=== PATIENT | male | born 1975 | race Caucasian/White ===

== ENCOUNTER 2016-12-23 14:37 | Inpatient (IN) ==
[2016-12-23] MEDS ORDERED: Vancomycin 1,000 MG VIAL IVPB ONE ×2 (16:51→18:00)
[2016-12-23] MEDS ORDERED: *HR* Morphine 2 MG/ML SYRINGE IVP ONE (16:51)
[2016-12-23] MEDS ORDERED: 0.9 % Sodium Chloride 1,000 ML IVC ONE (16:51)
[2016-12-23] MEDS ORDERED: Piperacillin/Tazobactam 3.375 GM in D5% in Water (Mini-Bag+) 100 ML IVPB ONE (16:51)
--- NOTE | 2016-12-23 16:59 | Emergency Department Note ---
START Narrative - START START: Patient was brought to the [facility] area. Upon examination it was determined he will need further evaluation and treatment and will be transferred to a medical bed. Dr. Villanueva did come to [facility] and also evaluated patient. Patient states he has a history of DM. STates a few months ago noticed a small "pimple" in and around the top of penis but it never progressed. Within the last few days he states the area has become more swollen, tender. He states this morning the top shaft of penis was red, but now there is a blackened area in that same place. Scrotum is tender and edematous. Patient denies any nausea or vomiting, no fever. STates he last ate today around 1130. States he has been able to eat and drink without difficulty. Patient advised we will need to consult with a surgeon and he will need CT of pelvis. Patient denies trying to drain the site himself, and states he has not noticed any drainage. Patient was moved to Bed 3, and Dr. Villanueva and Dr. Sheets will assume his care.
--- NOTE | 2016-12-23 17:14 | Emergency Department Note ---
Disposition Clinical Impression: Skin abscess Qualifiers: Site of cutaneous abscess: other site Qualified Code(s): L02.818 - Cutaneous abscess of other sites Disposition: Admitted As Inpatient Condition: Fair Skin/Abscess/FB HPI Chief complaint: ED Skin/Abscess/Foreign Body Stated complaint: Abcess on [place] Time Seen by Provider: 12/23/16 16:29 Source: patient Limitations: no limitations Nursing Notes Reviewed: Yes Vital Signs Reviewed: Yes HPI Narrative: Mr. Sams, a 41yo male, presents from home by POV with chief complaint of swelling on his penis. Patient states he went camping several months ago and had a common "spot"on the left side of the bases penis. He says this resolved after few days. However, over the last 2-3 days, patient notes he has had swelling with central black area at the top of the base of his penis. States it is exquisitely painful to palpation and movement. Denies fever, chills, nausea, vomiting, other pains, difficulty with urination, loss of sensation in the glans of his penis. Patient notes he is supposted to partying with his brother pete as his brother is going into rehab tomorrow. Also, patient has a court date tomorrow. Home Medications Medication Instructions Recorded Confirmed No Known Home Drugs 12/23/16 12/23/16 Allergies Allergy/AdvReac Type Severity Reaction Status Date / Time tramadol Allergy Hives Verified 03/13/16 14:48 NSAIDS (Non-Steroidal AdvReac Gastrointestinal Verified 03/13/16 14:48 Anti-Inflamma Upset All systems ED: reviewed and negative except as stated. Constitutional: Denies: fever, chills Cardiovascular: Denies: chest pain, palpitations Respiratory: Denies: cough, dyspnea, wheezes, hemoptysis Gastrointestinal: Denies: abdominal pain, nausea, vomiting, diarrhea, constipation Genitourinary: Reports: genital lesions. Denies: urgency, dysuria, hematuria, discharge Musculoskeletal: Denies: back pain Past Medical History - Past Medical History Medical history: Reports: hepatitis Surgical history: Reports: other Psychiatric history: Reports: anxiety, depression, other - Social History Smoking Status: Current every day smoker Smokeless Tobacco Status: No Alcohol use: Reports: none Drug use: Reports: none, marijuana, methamphetamine Physical Exam Vital signs reviewed. General: Patient is alert, oriented, and in no acute distress. HEENT: No facial asymmetry. Head is normocephalic and atraumatic. Cardiovascular: Heart regular rate and rhythm without clicks, rubs, gallops, or murmurs. Respiratory: Symmetric chest rise with good respiratory effort. Bilateral breath sounds are clear without wheezing, crackles, or rhonchi. Abdomen: Bowel sounds present normoactive x-4 quadrants. Abdomen is soft, nondistended, and nontender. General: Basically patient's penis shows a painful raised area of fluctuance approximately 2.5 cm in diameter on an erythematous base. A posterior lens or exudates. No swelling or erythema of the shaft or glans penis. No bilateral inguinal lymphadenopathy. No testicular pain and tenderness. Psych: Patient's affect is appropriate for situation. - General Limitations: no limitations General appearance: alert Course Course Narrative: Spoke with Dr. Reece of urology who advises transfer. This may be an abscess we cannot rule out Suzy's out at this time. Additionally, this infection may progress to Suzy's. At this time, we do not have the surgical schedule to appropriately emergently debride should this be Suzy's. Lab work shows leukocytosis otherwise unremarkable. [facility] is on diversion. CT with IV contrast returned showing abscess without subcutaneous gas or crepitus. Spoke with Dr. Mendoza who agreed to come down to the emergency department for bedside I&D. Patient started on empiric IV vancomycin and Zosyn. Patient accepted to the hospitalist, Dr. Taylor, with Dr. Mendoza following. Vital Signs Temperature 99.8 F H 12/23/16 15:26 Pulse Rate 94 12/23/16 15:26 Respiratory Rate 16 12/23/16 15:26 Blood Pressure 130/89 12/23/16 15:26 O2 Sat by Pulse Oximetry 97 12/23/16 15:26 Temperature 99.8 F H 12/23/16 15:26 Pulse Rate 94 12/23/16 15:26 Respiratory Rate 16 12/23/16 15:26 Blood Pressure 130/89 12/23/16 15:26 O2 Sat by Pulse Oximetry 97 12/23/16 15:26 Oxygen Delivery Oxygen Delivery Room Air Skin/Abscess/Foreign Body - Lab Data Result diagrams: 12/23/16 17:00 12/23/16 17:00 Lab Results 12/23/16 12/23/16 12/23/16 Range/Units 17:00 17:00 17:00 WBC 16.3 H (4.3-11.1) K/mcL RBC 5.52 H (4.19-5.50) M/mcL Hgb 17.1 H (12.9-16.9) g/dL Hct 49.4 (37.5-50.1) % MCV 89.5 (83.0-100.0) fL MCH 31.0 (28.0-33.3) pg MCHC 34.6 (31.6-35.5) g/dL RDW 12.3 (11.5-14.5) % Plt Count 282 (140-400) K/mcL MPV 9.7 (9.4-12.4) fL Immature Gran % 0.4 (0-4) % Seg Neutrophils % 67.3 % Lymphocytes % 22.8 % Monocytes % 8.2 % Eosinophils % 1.0 % Basophils % 0.3 % Neutrophils # 11.0 H (1.6-8.9) K/mcL Lymphocytes # 3.7 (0.6-4.6) K/mcL Monocytes # 1.3 (0.0-1.3) K/mcL Eosinophils # 0.2 (0.0-0.6) K/mcL Basophils # 0.1 (0.0-0.2) K/mcL PT 12.9 H (9.4-12.1) Seconds INR 1.2 APTT 33.0 (26.0-36.0) Seconds Sodium 136 (136-145) mEq/L Potassium 3.7 (3.5-4.5) mEq/L Chloride 101 (98-109) mEq/L Carbon Dioxide 28 (19-29) mEq/L BUN 9 (8-26) mg/dL Creatinine 0.69 L (0.72-1.25) mg/dL Est GFR ( Amer) > 60 (> 60) Est GFR (Non-Af Amer) > 60 (> 60) BUN/Creatinine Ratio 13 (6-26) Glucose 90 (70-99) mg/dL POC Glucose (58-89) Calculated Osmolality 280 (280-300) Calcium 9.2 (8.6-10.8) mg/dL Blood Type Antibody Screen 12/23/16 12/23/16 Range/Units 17:05 17:22 WBC (4.3-11.1) K/mcL RBC (4.19-5.50) M/mcL Hgb (12.9-16.9) g/dL Hct (37.5-50.1) % MCV (83.0-100.0) fL MCH (28.0-33.3) pg MCHC (31.6-35.5) g/dL RDW (11.5-14.5) % Plt Count (140-400) K/mcL MPV (9.4-12.4) fL Immature Gran % (0-4) % Seg Neutrophils % % Lymphocytes % % Monocytes % % Eosinophils % % Basophils % % Neutrophils # (1.6-8.9) K/mcL Lymphocytes # (0.6-4.6) K/mcL Monocytes # (0.0-1.3) K/mcL Eosinophils # (0.0-0.6) K/mcL Basophils # (0.0-0.2) K/mcL PT (9.4-12.1) Seconds INR APTT (26.0-36.0) Seconds Sodium (136-145) mEq/L Potassium (3.5-4.5) mEq/L Chloride (98-109) mEq/L Carbon Dioxide (19-29) mEq/L BUN (8-26) mg/dL Creatinine (0.72-1.25) mg/dL Est GFR ( Amer) (> 60) Est GFR (Non-Af Amer) (> 60) BUN/Creatinine Ratio (6-26) Glucose (70-99) mg/dL POC Glucose 94 H (58-89) Calculated Osmolality (280-300) Calcium (8.6-10.8) mg/dL Blood Type O NEGATIVE Antibody Screen NEGATIVE Attestation Statement - Attestation Attestation: I examined this patient and my medical decision-making was reviewed with the WEB DEVELOPER PROGRAMMER/PA/Advanced Practice Nurse/Resident Physician. I agree with the documented findings, disposition and treatment plan as described except to the extent set forth below. 41 yo male presents with pain and swelling to the base of the penis and the pubic area. symptoms worsening over the past 3 days. started as a small "pimple" and progressively worsened. +nausea without vomiting. +history of DM but denies fever, chills, abdominal pain, diarrhea. No history of penile discharge. No crepitus palpated during exam but there is a 1x1cm area of black area which could represent necrotic tissue. Urology consulted immediately after initial evaluation who recommended that there was no open operating rooms and that transfer for possible suzy's gangrene may be appropriate. [facility] on diversion. [place] unable to provide tranfer in timely manner. While waiting for acceptance to [place], labs and CT returned showing abscess without evidence of gas within the tissues. Dr. Mendoza then evaluated the pt in the ED and performed I&D in the ED. Pt was started on vancomycin and zosyn after initial evaluation and pt was admitted for further observation and treatment.
[2016-12-23 17:26] LABS: Basophils # 0.1 K/mcL (0.0-0.2); Basophils % 0.3 %; Eosinophils # 0.2 K/mcL (0.0-0.6); Hematocrit 49.4 % (37.5-50.1); Hemoglobin 17.1 g/dL (12.9-16.9); Immature Granulocytes % 0.4 % (0-4); Lymphocytes # 3.7 K/mcL (0.6-4.6); Lymphocytes % 22.8 %; Mean Corpuscular HGB Conc 34.6 g/dL (31.6-35.5); Mean Corpuscular Volume 89.5 fL (83.0-100.0); Mean Platelet Volume 9.7 fL (9.4-12.4); Monocytes # 1.3 K/mcL (0.0-1.3); Monocytes % 8.2 %; Platelet Count 282 K/mcL (140-400); Red Blood Count 5.52 M/mcL (4.19-5.50); Red Cell Distribution Width 12.3 % (11.5-14.5); Segmented Neutrophils % 67.3 %
[2016-12-23 17:34] LABS: INR 1.2; Prothrombin Time 12.9 Seconds (9.4-12.1)
[2016-12-23 17:39] LABS: Calcium 9.2 mg/dL (8.6-10.8); Carbon Dioxide 28 mEq/L (19-29); Chloride 101 mEq/L (98-109); Glucose 90 mg/dL (70-99); Potassium 3.7 mEq/L (3.5-4.5); Sodium 136 mEq/L (136-145); eGFR For African Americans > 60 (> 60); eGFR For Non-African Americans > 60 (> 60)
[2016-12-23] MEDS ORDERED: Vancomycin 1,500 MG in D5% in Water 250 ML IVPB ONE (18:10)
[2016-12-23 18:31] LABS: BUN/Creatinine Ratio 13 (6-26); Blood Urea Nitrogen 9 mg/dL (8-26); Osmolality,Calculated 280 (280-300)
[2016-12-23] MEDS ORDERED: Lidocaine -MPF 1% 2 ML VIAL INFILT ONE (19:08)
--- NOTE | 2016-12-23 19:38 | Urology - Consult Note ---
Date of Encounter: 12/23/16 Time of Encounter: 19:36 - Assessment and Plan (1) Penile abscess Current Visit: Yes Status: Acute Assessment and plan: Informed consent was obtained. Patient was prepped and draped in normal sterile fashion. I then instilled 10 mL of 1% lidocaine with epinephrine into the patient's abscess area. Pus was immediately returned just with the polka the needle. I then made a incision over the abscess area. I excised a 1 cm x 1 cm necrotic area on the dorsal aspect of the penis just at the junction with the abdominal skin. Marked amount of pus was returned from the patient's abscess pocket. Cultures were obtained. The wound was then packed. Continue IV antibiotics. Will start twice a day packing tomorrow morning with me changing the packing tomorrow morning. We will continue to follow along. Urology CN:HPI Consult date: 12/23/16 Reason for consult Urology: Other (penile abscess) Requesting physician: Enedina Villanueva History of present illness: Enedina is a 41-year-old male with a history penile and scrotal swelling for the past 2 days. Patient states that it started on the left side of his penis. He came to the emergency department today found to have a penile abscess on CT scan. Patient did have a small necrotic area over top of this abscess. Patient is a former IV drug abuser. He denies any recent IV drug abuse. No fevers. Past Med Surg Social Fam HX - Past Medical History Medical history: hepatitis Psychiatric history: anxiety, depression, other - Past Surgical History Surgical History: other - Social History Smoking Status: Current every day smoker Smokeless Tobacco Status: No Alcohol use: none Drug use: none, marijuana, methamphetamine Medications and Allergies Acetaminophen [Tylenol] 500 - 1,000 mg PO Q4-6H PRN #30 tablet 09/07/15 [Rx] Sulfamethoxazole/Trimeth DS [Bactrim DS] 1 each PO BID #14 tablet 03/13/16 [Rx] cephALEXin [Keflex] 500 mg PO QID #28 capsule 03/13/16 [Rx] Allergies tramadol Allergy (Verified 03/13/16 14:48) Hives NSAIDS (Non-Steroidal Anti-Inflamma Adverse Reaction (Verified 03/13/16 14:48) Gastrointestinal Upset Review of Systems - Constitutional no fever(s) - EENT Nose, mouth and throat: no as per HPI - Cardiovascular no chest pain - Respiratory no cough - Gastrointestinal no abdominal pain - Genitourinary as per HPI Exam Initial Vital Signs Temp Pulse Resp BP Pulse Ox 99.8 F H 94 16 130/89 97 12/23/16 15:26 12/23/16 15:26 12/23/16 15:26 12/23/16 15:26 12/23/16 15:26 - General physical appearance Present: well developed - Respiratory Present: normal respiratory effort - Cardiovascular Cardiovascular exam IM: RRR - Abdomen Abdomen: Present: soft - Genitourinary other (The cranial portion of the penis at the junction with the abdominal skin showed a small necrotic area. There was fluctuance underneath. Scrotum and testicles were uninvolved.) Urology Results - Labs 12/23/16 17:00 12/23/16 17:00 Abnormal lab results WBC 16.3 K/mcL (4.3-11.1) H 12/23/16 17:00 RBC 5.52 M/mcL (4.19-5.50) H 12/23/16 17:00 Hgb 17.1 g/dL (12.9-16.9) H 12/23/16 17:00 Neutrophils # 11.0 K/mcL (1.6-8.9) H 12/23/16 17:00 PT 12.9 Seconds (9.4-12.1) H 12/23/16 17:00 Creatinine 0.69 mg/dL (0.72-1.25) L 12/23/16 17:00 POC Glucose 94 (58-89) H 12/23/16 17:05 Diabetes panel 12/23/16 Range/Units 17:00 Sodium 136 (136-145) mEq/L Potassium 3.7 (3.5-4.5) mEq/L Chloride 101 (98-109) mEq/L Carbon Dioxide 28 (19-29) mEq/L BUN 9 (8-26) mg/dL Creatinine 0.69 L (0.72-1.25) mg/dL Glucose 90 (70-99) mg/dL Calcium 9.2 (8.6-10.8) mg/dL Calcium panel 12/23/16 Range/Units 17:00 Calcium 9.2 (8.6-10.8) mg/dL Pituitary panel 12/23/16 Range/Units 17:00 Sodium 136 (136-145) mEq/L Potassium 3.7 (3.5-4.5) mEq/L Chloride 101 (98-109) mEq/L Carbon Dioxide 28 (19-29) mEq/L BUN 9 (8-26) mg/dL Creatinine 0.69 L (0.72-1.25) mg/dL Glucose 90 (70-99) mg/dL Calcium 9.2 (8.6-10.8) mg/dL Adrenal panel 12/23/16 Range/Units 17:00 Sodium 136 (136-145) mEq/L Potassium 3.7 (3.5-4.5) mEq/L Chloride 101 (98-109) mEq/L Carbon Dioxide 28 (19-29) mEq/L BUN 9 (8-26) mg/dL Creatinine 0.69 L (0.72-1.25) mg/dL Glucose 90 (70-99) mg/dL Calcium 9.2 (8.6-10.8) mg/dL All other labs normal. Consult Discharge Plan - Plan Referrals: NO,PCP [Primary Care Provider] -
[2016-12-23] MEDS ORDERED: Acetaminophen 325 MG TABLET PO PRN (20:01)
[2016-12-23] MEDS ORDERED: Naloxone 0.4 MG/ML INJ IVP PRN (20:01)
--- NOTE | 2016-12-23 20:13 | Internal Med History&Physical ---
Date of Encounter: 12/23/16 Time of Encounter: 20:09 Assessment and Plan (1) Sepsis Current visit: Yes Status: Acute Patient with abscess at base of penis, and surrounding erythema consistent with cellulitis. WBC count of 16.3 and mild tachycardia with HR in the 90s, meeting sepsis criteria. blood cultures and wound cultures obtained and sent. broad spectrum antibiotics started with vanc and zosyn lactate ordered stat. fluids 0.9NS at 75mL/hr Qualifiers: Sepsis type: sepsis due to unspecified organism Qualified Code(s): A41.9 - Sepsis, unspecified organism (2) Penile abscess Current visit: Yes Status: Acute Patient presented with abscess at base of penis. CT of his pelvis demonstrated a 2.8 x 4.6cm soft tissue abscess along the dorsal surfaceof the base of the penis, extensive surrounding induration consistent with cellulitis. Urology consulted and performed I&D at the bedside. Urology to perform dressing change in the morning. IV antibiotics with Vanc and zosyn. [place] and morphine PRN for pain Narcan PRN for respiratory depression. (3) Smoker Current visit: Yes Status: Acute smoking cessation education ordered nicotine patch (4) DVT prophylaxis Current visit: Yes Status: Acute anti-embolic stockings lovenox 40mg SQ daily Internal Medicine - H&P: HPI Chief complaint: abscess Admitted From: Emergency Dept Plans for Post Hospital Care: Home History of present illness: Mr. Sams is a 41 year old male with hepatitis C, asthma, GERD, history of IV drug use presented to the emergency department today with complaints of swelling and pain at the base of his penis. Patient reports that a few months ago he noticed a pimple in the same area which went away and then a few days ago he noticed a pimple again the left side of the base of his penis yesterday he noticed some pain and swelling which has gotten worse. He denies any fever, chills, sweats, body aches. He denies any nausea, vomiting, abdominal pain, diarrhea. He denies any dysuria. Evaluation in the emergency department included a CT of the pelvis which demonstrated a 2.8 x 4.6 cm soft tissue abscess along the dorsal surface of the base of the penis, extensive surrounding induration consistent with cellulitis. White blood cell count was elevated 16.3. Patient was mildly tachycardic with heart rate in the 90s, meeting sepsis criteria. Urology was consulted, and Dr. Flower performed an incision and drainage at the bedside, and packed the wound. Wound cultures and blood cultures were sent, and patient was initiated on Zosyn and vancomycin. On exam, patient is alert and oriented, in no acute distress. There is gauze packing extending from the incision at the base of his penis, which has serosanguineous drainage. There is surrounding erythema, which is mildly tender in to palpation. Lungs are clear bilaterally to auscultation heart has regular rate and rhythm. 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 - Constitutional Constitutional: no chills, no fever(s), no night sweats - EENT Eyes: no change in vision, no discharge, no pain, no photophobia Ears: no ear discharge, no ear pain, no tinnitus Nose, mouth and throat: no dysphagia, no nasal discharge, no neck pain, no sore throat - Cardiovascular Cardiovascular ROS IM: no chest pain, no diaphoresis, no dyspnea, no lightheadedness, no palpitations, no syncope - Respiratory Respiratory: no cough, no dyspnea, no wheezing, no excessive phlegm production - Gastrointestinal Gastrointestinal: no abdominal pain, no diarrhea, no hematemesis, no hematochezia, no melena, no nausea, no vomiting - Genitourinary Genitourinary ROS male: genital lesions, genital pain - Musculoskeletal Musculoskeletal ROS IM: no numbness, no tingling - Integumentary Integumentary IM: erythema (surrounding penile abscess.), no rash, no unusual bruising - Neurological Neurological ROS: no confusion, no convulsions, no focal weakness, no numbness, no tingling, no tremor(s) - Hematologic/Lymphatic Hematologic/Lymphatic: no easy bruising - Constitutional Vitals: Temp Pulse Resp BP Pulse Ox 99.8 F H 94 16 130/89 97 12/23/16 15:26 12/23/16 15:26 12/23/16 15:26 12/23/16 15:26 12/23/16 15:26 General appearance: Present: A&O X 3, pleasant, no acute distress - Head Head exam: Present: atraumatic, normocephalic - Eye Eye exam: Present: PERRL, conjuntiva pink, sclera anicteric Pupils: Present: PERRL - Neck Neck exam general surgery: Present: supple, trachea midline. Absent: lymphadenopathy - Respiratory Respiratory exam: Present: CTAB. Absent: accessory muscle use, rales, rhonchi, wheezes - Cardiovascular Cardiovascular exam: Present: RRR, +S1, +S2. Absent: diastolic murmur, gallop, rubs, systolic murmur - GI/Abdominal GI/Abdominal exam: Present: normal bowel sounds, soft, no peritoneal signs. Absent: distended, tenderness - Additional comments: incision at base of penis with gauze extending out, with serosanguinous drainage. Surrounding erythema. - Extremities Exam Extremities exam: Present: warm, radial pulses palpable and symetrical. Absent : calf tenderness, cyanotic, pedal edema - Neurological Exam Neurological exam: Present: CN II-XII intact, oriented X3, no focal deficits. Absent: facial droop, speech deficit - Skin Skin exam: Present: dry, intact Internal Med - H&P Results - Labs CBC & Chem 7: 12/23/16 17:00 12/23/16 17:00 Labs: All Lab Results (24 Hours) 12/23/16 12/23/16 12/23/16 Range/Units 17:00 17:00 17:00 WBC 16.3 H (4.3-11.1) K/mcL RBC 5.52 H (4.19-5.50) M/mcL Hgb 17.1 H (12.9-16.9) g/dL Hct 49.4 (37.5-50.1) % MCV 89.5 (83.0-100.0) fL MCH 31.0 (28.0-33.3) pg MCHC 34.6 (31.6-35.5) g/dL RDW 12.3 (11.5-14.5) % Plt Count 282 (140-400) K/mcL MPV 9.7 (9.4-12.4) fL Immature Gran % 0.4 (0-4) % Seg Neutrophils % 67.3 % Lymphocytes % 22.8 % Monocytes % 8.2 % Eosinophils % 1.0 % Basophils % 0.3 % Neutrophils # 11.0 H (1.6-8.9) K/mcL Lymphocytes # 3.7 (0.6-4.6) K/mcL Monocytes # 1.3 (0.0-1.3) K/mcL Eosinophils # 0.2 (0.0-0.6) K/mcL Basophils # 0.1 (0.0-0.2) K/mcL PT 12.9 H (9.4-12.1) Seconds INR 1.2 APTT 33.0 (26.0-36.0) Seconds Sodium 136 (136-145) mEq/L Potassium 3.7 (3.5-4.5) mEq/L Chloride 101 (98-109) mEq/L Carbon Dioxide 28 (19-29) mEq/L BUN 9 (8-26) mg/dL Creatinine 0.69 L (0.72-1.25) mg/dL Est GFR ( Amer) > 60 (> 60) Est GFR (Non-Af Amer) > 60 (> 60) BUN/Creatinine Ratio 13 (6-26) Glucose 90 (70-99) mg/dL POC Glucose (58-89) Calculated Osmolality 280 (280-300) Calcium 9.2 (8.6-10.8) mg/dL Blood Type Antibody Screen 12/23/16 12/23/16 Range/Units 17:05 17:22 WBC (4.3-11.1) K/mcL RBC (4.19-5.50) M/mcL Hgb (12.9-16.9) g/dL Hct (37.5-50.1) % MCV (83.0-100.0) fL MCH (28.0-33.3) pg MCHC (31.6-35.5) g/dL RDW (11.5-14.5) % Plt Count (140-400) K/mcL MPV (9.4-12.4) fL Immature Gran % (0-4) % Seg Neutrophils % % Lymphocytes % % Monocytes % % Eosinophils % % Basophils % % Neutrophils # (1.6-8.9) K/mcL Lymphocytes # (0.6-4.6) K/mcL Monocytes # (0.0-1.3) K/mcL Eosinophils # (0.0-0.6) K/mcL Basophils # (0.0-0.2) K/mcL PT (9.4-12.1) Seconds INR APTT (26.0-36.0) Seconds Sodium (136-145) mEq/L Potassium (3.5-4.5) mEq/L Chloride (98-109) mEq/L Carbon Dioxide (19-29) mEq/L BUN (8-26) mg/dL Creatinine (0.72-1.25) mg/dL Est GFR ( Amer) (> 60) Est GFR (Non-Af Amer) (> 60) BUN/Creatinine Ratio (6-26) Glucose (70-99) mg/dL POC Glucose 94 H (58-89) Calculated Osmolality (280-300) Calcium (8.6-10.8) mg/dL Blood Type O NEGATIVE Antibody Screen NEGATIVE - Impressions ITS Impressions Pelvis CT 12/23/16 17:10 IMPRESSION: 2.8 x 4.6 cm soft tissue abscess along the dorsal surface of the base of the penis. Extensive surrounding induration is consistent with cellulitis. No soft tissue gas. Results of this examination were verbally communicated to Dr. Reza at 6:19 p.m. on 12/23/2016. D/ / Marlon Rosenbaum MD / Marlon Rosenbaum MD Interpreting Provider: Marlon Rosenbaum MD - Diagnostic Studies CT scan - pelvis Additional comments: Pelvis CT 12/23/16 17:10
[2016-12-23] MEDS ORDERED: Vancomycin 1,500 MG in D5% in Water 250 ML IVPB SCH (21:00)
[2016-12-23] MEDS: Nicotine 21 MG PATCH.TD24 TD SCH (22:20)
[2016-12-23] MEDS: 0.9 % Sodium Chloride 1,000 ML IVC SCH (22:21)
[2016-12-23] MEDS: *HR* HYDROcodone/Acet 5/325 mg TABLET PO PRN (22:21)
[2016-12-24] MEDS: Piperacillin/Tazobactam 3.375 GM in D5% in Water (Mini-Bag+) 100 ML IVPB SCH ×3 (01:16→19:00)
[2016-12-24] MEDS: *HR* HYDROcodone/Acet 5/325 mg TABLET PO PRN ×3 (02:30→14:13)
[2016-12-24 05:57] LABS: Basophils # 0.1 K/mcL (0.0-0.2); Basophils % 0.7 %; Eosinophils # 0.3 K/mcL (0.0-0.6); Eosinophils % 2.6 %; Hematocrit 46.8 % (37.5-50.1); Hemoglobin 15.6 g/dL (12.9-16.9); Immature Granulocytes % 0.4 % (0-4); Lymphocytes # 3.5 K/mcL (0.6-4.6); Lymphocytes % 32.6 %; Mean Corpuscular HGB Conc 33.3 g/dL (31.6-35.5); Mean Corpuscular Hemoglobin 30.8 pg (28.0-33.3); Mean Corpuscular Volume 92.5 fL (83.0-100.0); Monocytes % 9.5 %; Neutrophils # 5.8 K/mcL (1.6-8.9); Platelet Count 253 K/mcL (140-400); Red Blood Count 5.06 M/mcL (4.19-5.50); Red Cell Distribution Width 12.5 % (11.5-14.5); Segmented Neutrophils % 54.2 %
[2016-12-24 06:07] LABS: BUN/Creatinine Ratio 12 (6-26); Blood Urea Nitrogen 9 mg/dL (8-26); Calcium 8.6 mg/dL (8.6-10.8); Carbon Dioxide 27 mEq/L (19-29); Chloride 103 mEq/L (98-109); Glucose 108 mg/dL (70-99); Osmolality,Calculated 287 (280-300); Potassium 3.6 mEq/L (3.5-4.5); Sodium 139 mEq/L (136-145); eGFR For African Americans > 60 (> 60); eGFR For Non-African Americans > 60 (> 60)
[2016-12-24] MEDS: *HR* Enoxaparin 40 MG/0.4 ML SYRINGE SQ SCH (06:17)
[2016-12-24] MEDS: Vancomycin 1,500 MG in D5% in Water 250 ML IVPB SCH ×2 (06:17→19:00)
--- NOTE | 2016-12-24 07:36 | Urology Progress Note ---
Date of Encounter: 12/24/16 Time of Encounter: 07:35 - Assessment and Plan (1) Penile abscess Current Visit: Yes Status: Acute Assessment and plan: continue abx until cultures return. continue BID packing changes. will need home health for packing changes, Progress Note Narrative: sp base of penis abscess drainage. feeling better Objective Initial Vital Signs Temp Pulse Resp BP Pulse Ox 99.8 F H 94 16 130/89 97 12/23/16 15:26 12/23/16 15:26 12/23/16 15:26 12/23/16 15:26 12/23/16 15:26 - General physical appearance Present: well developed - Abdomen Present: soft - Genitourinary Present: other (packing removed, wound probed, packing replaced into wound) - Labs 12/24/16 04:38 12/24/16 04:38 Diabetes panel 12/24/16 Range/Units 04:38 Sodium 139 (136-145) mEq/L Potassium 3.6 (3.5-4.5) mEq/L Chloride 103 (98-109) mEq/L Carbon Dioxide 27 (19-29) mEq/L BUN 9 (8-26) mg/dL Creatinine 0.74 (0.72-1.25) mg/dL Glucose 108 H (70-99) mg/dL Calcium 8.6 (8.6-10.8) mg/dL Calcium panel 12/24/16 Range/Units 04:38 Calcium 8.6 (8.6-10.8) mg/dL Pituitary panel 12/24/16 Range/Units 04:38 Sodium 139 (136-145) mEq/L Potassium 3.6 (3.5-4.5) mEq/L Chloride 103 (98-109) mEq/L Carbon Dioxide 27 (19-29) mEq/L BUN 9 (8-26) mg/dL Creatinine 0.74 (0.72-1.25) mg/dL Glucose 108 H (70-99) mg/dL Calcium 8.6 (8.6-10.8) mg/dL Adrenal panel 12/24/16 Range/Units 04:38 Sodium 139 (136-145) mEq/L Potassium 3.6 (3.5-4.5) mEq/L Chloride 103 (98-109) mEq/L Carbon Dioxide 27 (19-29) mEq/L BUN 9 (8-26) mg/dL Creatinine 0.74 (0.72-1.25) mg/dL Glucose 108 H (70-99) mg/dL Calcium 8.6 (8.6-10.8) mg/dL Consult Discharge Plan - Plan Referrals: NO,PCP [Primary Care Provider] -
--- NOTE | 2016-12-24 09:21 | Internal Med Progress Note ---
Date of Encounter: 12/24/16 Time of Encounter: 09:21 - Assessment and plan (1) Penile abscess Current Visit: Yes Status: Acute Assessment and plan: Counselled on Screening for STDs, HIV, declines for now, states he was recently screened Continue IV antibiotics Follow final culture reports Continue wound dressing (2) Sepsis Current Visit: Yes Status: Acute Assessment and plan: Follow cultures HR and BP WNL Leukocytosis resolved Qualifiers: Sepsis type: sepsis due to unspecified organism Qualified Code(s): A41.9 - Sepsis, unspecified organism (3) Smoker Current Visit: Yes Status: Acute (4) Hepatitis C Current Visit: Yes Status: Chronic Qualifiers: Viral hepatitis chronicity: chronic Hepatic coma status: without hepatic coma Qualified Code(s): B18.2 - Chronic viral hepatitis C - Subjective Interval history: 41 M Seen and evaluated at bedside Being managed for penile abscess, s/p I and D, awaiting final cultures. Urology following No new complains, pain is controlled Day 1 of vanco/Zosyn - Constitutional Vitals: Temp Pulse Resp BP Pulse Ox 97.7 F 67 14 116/76 98 12/24/16 07:20 12/24/16 07:20 12/24/16 07:20 12/24/16 07:20 12/24/16 07:20 General appearance: Present: A&O X 3, pleasant, no acute distress Exam: VSS. Not in distress Calm, not in any form of distress Alert, oriented X3 Moves all limbs spontaneously, speech is normal, No facial paralysis, follows commands Chest clear to auscultation bilaterally Heart sounds S1, S2 only, no m/g/r Abdomen: Soft, not tender, moves with respiration, BS present in all quadrants : anterior penile area with wound dressing, clean and dry, dressing just changed, hence, wound not inspected Extremities well perfused, no pedal edema Internal Medicine: Result - Labs CBC & Chem 7: 12/24/16 04:38 12/24/16 04:38 Labs: Short CBC 12/24/16 Range/Units 04:38 WBC 10.6 (4.3-11.1) K/mcL Hgb 15.6 D (12.9-16.9) g/dL Hct 46.8 (37.5-50.1) % Plt Count 253 (140-400) K/mcL Neutrophils # 5.8 (1.6-8.9) K/mcL BMP 12/24/16 04:38 Sodium 139 Potassium 3.6 Chloride 103 Carbon Dioxide 27 BUN 9 Creatinine 0.74 Glucose 108 H Calcium 8.6 - ABG Interpretation ABG results: PT/INR, D-dimer PT 12.9 Seconds (9.4-12.1) H 12/23/16 17:00 Consult Discharge Plan - Plan Referrals: NO,PCP [Primary Care Provider] -
[2016-12-24] MEDS: *HR* Morphine 2 MG/ML SYRINGE IVP PRN ×2 (09:36→19:01)
[2016-12-24] MEDS: Nicotine 21 MG PATCH.TD24 TD SCH (09:42)
[2016-12-24] MEDS: 0.9 % Sodium Chloride 1,000 ML IVC SCH (14:15)
[2016-12-25] MEDS: Piperacillin/Tazobactam 3.375 GM in D5% in Water (Mini-Bag+) 100 ML IVPB SCH ×2 (01:30→10:19)
[2016-12-25] MEDS: 0.9 % Sodium Chloride 1,000 ML IVC SCH ×2 (01:45→11:41)
[2016-12-25] MEDS: *HR* Enoxaparin 40 MG/0.4 ML SYRINGE SQ SCH (05:32)
[2016-12-25] MEDS: *HR* Morphine 2 MG/ML SYRINGE IVP PRN ×2 (05:36→10:21)
[2016-12-25 05:55] LABS: Basophils # 0.1 K/mcL (0.0-0.2); Eosinophils # 0.3 K/mcL (0.0-0.6); Eosinophils % 3.2 %; Hematocrit 47.1 % (37.5-50.1); Hemoglobin 15.7 g/dL (12.9-16.9); Immature Granulocytes % 0.2 % (0-4); Lymphocytes # 2.5 K/mcL (0.6-4.6); Mean Corpuscular HGB Conc 33.3 g/dL (31.6-35.5); Mean Corpuscular Hemoglobin 31.5 pg (28.0-33.3); Mean Corpuscular Volume 94.4 fL (83.0-100.0); Mean Platelet Volume 10.3 fL (9.4-12.4); Monocytes # 0.7 K/mcL (0.0-1.3); Monocytes % 8.7 %; Neutrophils # 4.5 K/mcL (1.6-8.9); Platelet Count 194 K/mcL (140-400); Red Blood Count 4.99 M/mcL (4.19-5.50); Red Cell Distribution Width 12.5 % (11.5-14.5); Segmented Neutrophils % 55.9 %
[2016-12-25 06:02] LABS: BUN/Creatinine Ratio 13 (6-26); Blood Urea Nitrogen 9 mg/dL (8-26); Calcium 8.6 mg/dL (8.6-10.8); Carbon Dioxide 25 mEq/L (19-29); Chloride 107 mEq/L (98-109); Glucose 95 mg/dL (70-99); Osmolality,Calculated 284 (280-300); Sodium 138 mEq/L (136-145); eGFR For African Americans > 60 (> 60); eGFR For Non-African Americans > 60 (> 60)
[2016-12-25] MEDS: Vancomycin 1,500 MG in D5% in Water 250 ML IVPB SCH (06:15)
[2016-12-25 06:44] LABS: Platelet Estimate Normal (Normal)
--- NOTE | 2016-12-25 07:38 | Urology Progress Note ---
Date of Encounter: 12/25/16 Time of Encounter: 07:36 - Assessment and Plan (1) Penile abscess Current Visit: Yes Status: Acute Assessment and plan: continue BID packing. culture specific abx once culture returned. Progress Note Narrative: patient feeling better. culture presumptively + for MRSA. Objective Initial Vital Signs Temp Pulse Resp BP Pulse Ox 99.8 F H 94 16 130/89 97 12/23/16 15:26 12/23/16 15:26 12/23/16 15:26 12/23/16 15:26 12/23/16 15:26 - General physical appearance Present: well developed - Abdomen Present: soft - Genitourinary Present: other (wound improving with decreased induration. packing changed. ) - Labs 12/25/16 05:28 12/25/16 05:28 Diabetes panel 12/25/16 Range/Units 05:28 Sodium 138 (136-145) mEq/L Potassium 4.0 (3.5-4.5) mEq/L Chloride 107 (98-109) mEq/L Carbon Dioxide 25 (19-29) mEq/L BUN 9 (8-26) mg/dL Creatinine 0.69 L (0.72-1.25) mg/dL Glucose 95 (70-99) mg/dL Calcium 8.6 (8.6-10.8) mg/dL Calcium panel 12/25/16 Range/Units 05:28 Calcium 8.6 (8.6-10.8) mg/dL Pituitary panel 12/25/16 Range/Units 05:28 Sodium 138 (136-145) mEq/L Potassium 4.0 (3.5-4.5) mEq/L Chloride 107 (98-109) mEq/L Carbon Dioxide 25 (19-29) mEq/L BUN 9 (8-26) mg/dL Creatinine 0.69 L (0.72-1.25) mg/dL Glucose 95 (70-99) mg/dL Calcium 8.6 (8.6-10.8) mg/dL Adrenal panel 12/25/16 Range/Units 05:28 Sodium 138 (136-145) mEq/L Potassium 4.0 (3.5-4.5) mEq/L Chloride 107 (98-109) mEq/L Carbon Dioxide 25 (19-29) mEq/L BUN 9 (8-26) mg/dL Creatinine 0.69 L (0.72-1.25) mg/dL Glucose 95 (70-99) mg/dL Calcium 8.6 (8.6-10.8) mg/dL Consult Discharge Plan - Plan Referrals: NO,PCP [Primary Care Provider] -
[2016-12-25] MEDS: *HR* HYDROcodone/Acet 5/325 mg TABLET PO PRN (07:42)
[2016-12-25] MEDS: Nicotine 21 MG PATCH.TD24 TD SCH (07:42)
--- NOTE | 2016-12-25 10:45 | Discharge Summary ---
Date of Encounter: 12/25/16 Time of Encounter: 10:45 - Discharge Diagnosis (1) Penile abscess Priority: Primary Status: Acute (2) Sepsis Priority: Primary Status: Resolved Qualifiers: Sepsis type: sepsis due to unspecified organism Qualified Code(s): A41.9 - Sepsis, unspecified organism (3) Smoker Priority: Secondary Status: Chronic (4) Hepatitis C Priority: Secondary Status: Chronic Qualifiers: Viral hepatitis chronicity: chronic Hepatic coma status: without hepatic coma Qualified Code(s): B18.2 - Chronic viral hepatitis C - Discharge Medications Prescriptions: Acetaminophen [8 Hour] 650 mg PO Q8H #15 tablet.er Sulfamethoxazole/Trimeth DS [Bactrim DS] 1 each PO BID #14 tablet Home Medications: Acetaminophen [8 Hour] 650 mg PO Q8H #15 tablet.er 12/25/16 [Rx] Sulfamethoxazole/Trimeth DS [Bactrim DS] 1 each PO BID #14 tablet 12/25/16 [Rx] Allergies/Adverse Reactions: Allergies tramadol Allergy (Verified 03/13/16 14:48) Hives NSAIDS (Non-Steroidal Anti-Inflamma Adverse Reaction (Verified 03/13/16 14:48) Gastrointestinal Upset Date of admission: 12/23/16 20:06 Primary care physician: PCP NO Consults: 12/23/16 20:08 Consult to Urology [CONS] Routine Consulting Provider: Urology Viola Reason for Consult: abscess at base of penis Call Completed: Yes 12/24/16 21:11 Consult to Finished Garment Inspector [CONS] Routine Reason for SW Consult: Pt. will need home health set up for dressing changes. Discharging clinician: Dylan Gutierrez Anticipated date of discharge: 12/25/16 - Patient Status Disposition: Home Health Service Condition: Fair Functional capacity at discharge: independent ambulation Overall status at discharge: patient is back to baseline - Discharge Instructions Follow Up With: Lopez Reece MD [Partnered Physician] - Marlon Hatfield MD [Partnered Physician] - - Diet and Activity Activity: resume usual activities as tolerated Diet: regular diet Interval History: 41 Y/M, with history of fall hepatitis C and prior history of IV drug use presented with swelling and pain at the base of his penis. Evaluation in the ER included CT scan of the pelvis which demonstrated a 2.8 x 4.6 cm soft tissue abscess along the dorsal surface of the base of the penis, extensive surrounding induration consistent with cellulitis and abscess. Urology was consulted, and Dr. Mendoza performed I&D and packed the wound. Wound cultures and blood cultures were sent, and patient was started on Zosyn and vancomycin. Patient is admitted to the hospitalist service further management. Hospital course: Patient continued to improve with IV Vancomycin and Zosyn, his WBC has now normalized, his HR has been WNL he has remained afebrile Wound cultures reveal MRSA sensitive to Bactrim, Clindamycin, Vancomycin, Zyvox he has received at least 48 hrs of IV antibiotics in-patient He will be discharged on 7 more days of oral antibiotics-Bactrim Patient is educated about need for compliance, verbalized understanding He was counseled on need for STI screening and HIV, declined in this admission 3 minutes was spent on tobacco cessation counselling Plan of care is discussed, verbalizes understanding Home health services for wound care initiated Follow up with Urology Time spent discussing smoking cessation with patient: 3 to 10 minutes - Time Spent with Patient Total time spent providing and/or coordinating discharge services: Less than 30 minutes - Constitutional Vitals: Temp Pulse Resp BP Pulse Ox 97.8 F 78 16 122/71 96 12/25/16 08:57 12/25/16 08:57 12/25/16 08:57 12/25/16 08:57 12/25/16 08:57 General appearance: Present: A&O X 3, pleasant, no acute distress Exam: VSS. Not in distress Calm, not in any form of distress Alert, oriented X3 Moves all limbs spontaneously, speech is normal, No facial paralysis, follows commands Chest clear to auscultation bilaterally Heart sounds S1, S2 only, no m/g/r Abdomen: Soft, not tender, moves with respiration, BS present in all quadrants : anterior penile area with wound dressing, clean and dry, dressing just changed, hence, wound not inspected Extremities well perfused, no pedal edema
[2016-12-25] MEDS ORDERED: Vancomycin 1,500 MG in D5% in Water 250 ML IVPB SCH (12:00)
[2016-12-25 12:12] VITALS: BP 136/83
--- NOTE | 2016-12-25 12:53 | Physician Discharge Referral ---
Home Health/Hosp Referral Info Transfer to: Home Health Attending Provider: Dr. Gutierrez Provider in Charge Post Discharge: PCP - Diagnosis (1) Penile abscess Priority: Primary Status: Acute (2) Sepsis Priority: Primary Status: Resolved (3) Smoker Priority: Secondary Status: Chronic (4) Hepatitis C Priority: Secondary Status: Chronic - Respiratory Orders Smoking Cessation: Smoking cessation has been advised. For more information, call the [employer] Tobacco Quit Line at 1-937-[facility]-NOW. - Dressing/Wound Care Site: Anterior penile shaft Type of Dressing/Treatments w/Frequency: BID changing of packing with 4x4. - Diet/Nutrition Diet/Nutrition Orders: Regular - Activity Activity Orders: Ambulate - Services Needed Following services are medically necessary services: Nursing - Transfer Medications Prescriptions: Acetaminophen [8 Hour] 650 mg PO Q8H #15 tablet.er Sulfamethoxazole/Trimeth DS [Bactrim DS] 1 each PO BID #14 tablet Home Medications: Acetaminophen [8 Hour] 650 mg PO Q8H #15 tablet.er 12/25/16 [Rx] Sulfamethoxazole/Trimeth DS [Bactrim DS] 1 each PO BID #14 tablet 12/25/16 [Rx] Allergies/Adverse Reactions: Allergies tramadol Allergy (Verified 03/13/16 14:48) Hives NSAIDS (Non-Steroidal Anti-Inflamma Adverse Reaction (Verified 03/13/16 14:48) Gastrointestinal Upset Certification: Further, I certify that my clinical findings support that this patient is homebound (i.e. absences from home require considerable and taxing effort and are for medical reasons or latter day services or infrequently or short duration when for other reasons) because: Homebound Reason: Leaving home requires considerable and taxing effort due to condition Attestation: My signature below is to certify that this patient is under my care and that I, or nurse practitioner, or a physician's assistant office manager working with me, has a face-to -face encounter with this patient.
[2016-12-25] MEDS ORDERED: Aminoglycoside Consult 1 EACH MC ONE (15:09)
[2016-12-25] MEDS ORDERED: Vancomycin 1,750 MG in D5% in Water 500 ML IVPB SCH (18:00)
== END 2016-12-25 15:10 | disposition home health service (06) | DRG 872 ==
LOC: 3ANU 14:37 → EMEROO 14:37 → SUATTDRO 20:06 → 3ANU 21:58
PROVIDERS: ADMIT Nurse Practitioner Family; ATTEND Internal Medicine